=== PATIENT | female | born 1975 | race Caucasian/White ===

== ENCOUNTER 2023-12-21 13:40 | Emergency (ER) | payer OTHER, SELFPAY ==
[2023-12-21] VITALS (37 sets, daily range): BP systolic 97–145; BP diastolic 56–89; PULSE 105–130; RESP 16–20; TEMP 36.6–37.6; O2SAT 96–100; BMI 25.8
[2023-12-21] MEDS: 0.9 % SODIUM CHLORIDE 1000 ml 1,000 ML IV (14:26)
[2023-12-21] MEDS: ONDANSETRON 2 MG/ML inj 4 MG IVP ×2 (14:28→17:45)
--- NOTE | 2023-12-21 14:29 | ED.NAVMDI ---
HPI - Nausea/Vomiting/Diarrhea General Time Seen by Provider: 14:00 <Maris Reno MD - Last Filed: 12/21/23 17:24> Date Seen: 12/21/23 <Maris Reno MD - Last Filed: 12/21/23 17:24> Chief complaint: Nausea/Vomiting <Maris Reno MD - Last Filed: 12/21/23 17:24> Stated complaint: heart palpitations, vomiting <Maris Reno MD - Last Filed: 12/21/23 17:24> Time Seen by Provider: 12/21/23 13:59 <Maris Reno MD - Last Filed: 12/21/23 17:24> Source: patient, family and RN notes reviewed <Maris Reno MD - Last Filed: 12/21/23 17:24> Mode of arrival: ambulatory <Maris Reno MD - Last Filed: 12/21/23 17:24> Limitations: no limitations <Maris Reno MD - Last Filed: 12/21/23 17:24> History of Present Illness HPI Narrative: Marcy is a very pleasant 48-year-old female 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 Marcy had the onset of vomiting in association with diarrhea on evening December 17. This was associated with discomfort in the left lower quadrant. Initially she and her family attributed this to the pot luck that she had attended but no one else has been sick and her other family members are not ill. She notes that she had diarrhea up until 36 hours ago. Unfortunately vomiting has been continuing and she tried to have peanut butter toast earlier but ended up vomiting up approximately 20 minutes before she came to the hospital. Marcy has had chills and felt hot and cold but has not reported a fever. She denies dysuria hematuria. She did note some blood in her vomit that was within mucus and streaky. This was on Friday. She noted some blood and this stool and her stool seemed to be very dark. She denies recent heavy use of ibuprofen/Motrin. She does note that she has been drinking alcohol at night. She notes this has been because of stressors. She has no past history of withdrawal or history of pancreatitis. In the past 24 hours she is now getting very lightheaded when she stands up and her heart seems to be going fast. She also becomes very nauseated. No dysuria hematuria. She denies abdominal distension. No abdominal pain at this time. At home a COVID antigen test was negative. While working in the clinic no reported history of working with patient's with C diff. No recent extended travel, antibiotic use or working with children. <Maris Reno MD - Last Filed: 12/21/23 17:24> Associated nausea: Yes <Maris Reno MD - Last Filed: 12/21/23 17:24> Related Data Home medications: Home Medications ?Medication ?Instructions ?Recorded ?Confirmed aspirin 81 mg tablet,delayed 81 mg PO DAILY 12/21/23 08 release (Adult Aspirin Regimen) <Maris Reno MD - Last Filed: 12/21/23 17:24> Allergies/Adverse reactions: Allergies Allergy/AdvReac Type Severity Reaction Status Date / Time Penicillins Allergy Severe Difficulty Verified 12/21/23 15:23 Breathing <Maris Reno MD - Last Filed: 12/21/23 17:24> Review of Systems Status of ROS: Reports: 10 or more systems reviewed and unremarkable except as noted in History and below <Maris Reno MD - Last Filed: 12/21/23 17:24> Const: Reports: chills and fatigue; Denies: fever <Maris Reno MD - Last Filed: 12/21/23 17:24> Eyes: Denies: change in vision <Maris Reno MD - Last Filed: 12/21/23 17:24> ENMT: Denies: throat pain or nasal congestion <Maris Reno MD - Last Filed: 12/21/23 17:24> Cardio: Reports: lightheadedness; Denies: chest pain, swelling of feet/ankles or shortness of breath with exertion <Maris Reno MD - Last Filed: 12/21/23 17:24> Resp: Denies: shortness of breath or cough <Maris Reno MD - Last Filed: 12/21/23 17:24> GI: Reports: abdominal pain (Left lower quadrant now resolved), nausea, vomiting, diarrhea (No diarrhea in the last 36 hours) and blood in stool; Denies: constipation <Maris Reno MD - Last Filed: 12/21/23 17:24> : Denies: painful urination <Maris Reno MD - Last Filed: 12/21/23 17:24> Musculo: Denies: back pain <Maris Reno MD - Last Filed: 12/21/23 17:24> Endo: Reports: fatigue <Maris Reno MD - Last Filed: 12/21/23 17:24> PFSH PFS Social History: Social History Smoking Status: Current every day smoker What tobacco products do you use: cigarettes Do you use any of these nicotine containing products: None Second hand tobacco smoke exposure: Yes How often do you have a drink containing alcohol: 4 or more times a week How many standard drinks containing alcohol do you have on a typical day: 3 or 4 AUDIT-C Alcohol total score: 5 Non-prescribed substance use: denies use service: No <Maris Reno MD - Last Filed: 12/21/23 17:24> Exam Narrative: Exam Narrative: Marcy is alert and oriented. She appears fatigued but nontoxic. Mentating normally. EOM is full. Her lips are dry. Heart with a tachycardic rate but normal rhythm. Lungs are clear bilaterally abdomen is soft nontender. Nondistended. Lower extremities without edema. <Maris Reno MD - Last Filed: 12/21/23 17:24> Const: Vital Signs, click to edit/add: Vital Signs - 24 hr 12/21/23 13:53 12/21/23 13:53 12/21/23 15:36 Temperature 99.6 F 99.6 F Pulse Rate 119 H Pulse Rate [Pulse Oximeter] 130 H 130 H Respiratory Rate 20 20 Blood Pressure Blood Pressure [Ri ght Upper Arm] 133/73 133/73 Pulse Oximetry 100 100 100 Oxygen Delivery Me thod Room Air Room Air 12/21/23 15:45 12/21/23 15:50 12/21/23 15:53 Temperature 98 F Pulse Rate 120 H 112 H 110 H Pulse Rate [Pulse Oximeter] Respiratory Rate 18 Blood Pressure 110/65 110/65 Blood Pressure [Ri ght Upper Arm] Pulse Oximetry 100 100 Oxygen Delivery Me thod 12/21/23 16:00 12/21/23 16:01 12/21/23 16:10 Temperature 98.7 F Pulse Rate 113 H 113 H 116 H Pulse Rate [Pulse Oximeter] Respiratory Rate 18 Blood Pressure 117/64 126/68 Blood Pressure [Ri ght Upper Arm] Pulse Oximetry 100 99 100 Oxygen Delivery Me thod 12/21/23 16:12 12/21/23 16:15 12/21/23 16:16 Temperature Pulse Rate 120 H 121 H 116 H Pulse Rate [Pulse Oximeter] Respiratory Rate Blood Pressure 126/68 115/60 Blood Pressure [Ri ght Upper Arm] Pulse Oximetry 97 100 100 Oxygen Delivery Me thod 12/21/23 16:30 12/21/23 16:31 12/21/23 16:32 Temperature Pulse Rate 112 H 114 H 114 H Pulse Rate [Pulse Oximeter] Respiratory Rate Blood Pressure 118/72 Blood Pressure [Ri ght Upper Arm] Pulse Oximetry 100 100 97 Oxygen Delivery Me thod 12/21/23 16:45 12/21/23 16:46 12/21/23 16:55 Temperature 98.5 F Pulse Rate 111 H 111 H 115 H Pulse Rate [Pulse Oximeter] Respiratory Rate 16 Blood Pressure 119/65 109/62 Blood Pressure [Ri ght Upper Arm] Pulse Oximetry 98 99 99 Oxygen Delivery Me thod 12/21/23 17:21 12/21/23 17:49 12/21/23 17:54 Temperature 98.7 F 98.5 F 98.5 F Pulse Rate 111 H 110 H 111 H Pulse Rate [Pulse Oximeter] Respiratory Rate 16 18 16 Blood Pressure 106/56 L 118/65 118/65 Blood Pressure [Ri ght Upper Arm] Pulse Oximetry 98 99 99 Oxygen Delivery Me thod <Maris Reno MD - Last Filed: 12/21/23 17:24> Vital Signs, click to edit/add: Vital Signs - 24 hr 12/21/23 13:53 12/21/23 13:53 12/21/23 15:36 Temperature 99.6 F 99.6 F Pulse Rate 119 H Pulse Rate [Pulse Oximeter] 130 H 130 H Respiratory Rate 20 20 Blood Pressure Blood Pressure [Ri ght Upper Arm] 133/73 133/73 Pulse Oximetry 100 100 100 Oxygen Delivery Me thod Room Air Room Air 12/21/23 15:45 12/21/23 15:50 12/21/23 15:53 Temperature 98 F Pulse Rate 120 H 112 H 110 H Pulse Rate [Pulse Oximeter] Respiratory Rate 18 Blood Pressure 110/65 110/65 Blood Pressure [Ri ght Upper Arm] Pulse Oximetry 100 100 Oxygen Delivery Me thod 12/21/23 16:00 12/21/23 16:01 12/21/23 16:10 Temperature 98.7 F Pulse Rate 113 H 113 H 116 H Pulse Rate [Pulse Oximeter] Respiratory Rate 18 Blood Pressure 117/64 126/68 Blood Pressure [Ri ght Upper Arm] Pulse Oximetry 100 99 100 Oxygen Delivery Me thod 12/21/23 16:12 12/21/23 16:15 12/21/23 16:16 Temperature Pulse Rate 120 H 121 H 116 H Pulse Rate [Pulse Oximeter] Respiratory Rate Blood Pressure 126/68 115/60 Blood Pressure [Ri ght Upper Arm] Pulse Oximetry 97 100 100 Oxygen Delivery Me thod 12/21/23 16:30 12/21/23 16:31 12/21/23 16:32 Temperature Pulse Rate 112 H 114 H 114 H Pulse Rate [Pulse Oximeter] Respiratory Rate Blood Pressure 118/72 Blood Pressure [Ri ght Upper Arm] Pulse Oximetry 100 100 97 Oxygen Delivery Me thod 12/21/23 16:45 12/21/23 16:46 12/21/23 16:55 Temperature 98.5 F Pulse Rate 111 H 111 H 115 H Pulse Rate [Pulse Oximeter] Respiratory Rate 16 Blood Pressure 119/65 109/62 Blood Pressure [Ri ght Upper Arm] Pulse Oximetry 98 99 99 Oxygen Delivery Me thod 12/21/23 17:21 12/21/23 17:49 12/21/23 17:54 Temperature 98.7 F 98.5 F 98.5 F Pulse Rate 111 H 110 H 111 H Pulse Rate [Pulse Oximeter] Respiratory Rate 16 18 16 Blood Pressure 106/56 L 118/65 118/65 Blood Pressure [Ri ght Upper Arm] Pulse Oximetry 98 99 99 Oxygen Delivery Me thod <Dena Mcadams MD - Last Filed: 12/21/23 18:05> Documenting provider has reviewed patient's vital signs: yes <Maris Reno MD - Last Filed: 12/21/23 17:24> Course Course ED Course: Differential diagnosis includes but is not limited to viral gastroenteritis, colitis, autoimmune, food-borne illness, diverticulitis. Currently she is obviously dealing with dehydration with lightheadedness upon standing and tachycardia. Will give her 2 L normal saline, Zofran 4 mg. Will try to obtain stool studies if she is able to go to the bathroom. I did not attempt rectal exam as she has not felt the need to stool and 36 hours. She has had very poor p.o. intake. Will also check CBC, comprehensive panel, CRP as well as urinalysis. <Maris Reno MD - Last Filed: 12/21/23 17:24> Reevaluation(s) Reevaluation #1: Patient's hemoglobin came back at 4.5 but nursing staff states they noticed a clot in the 2. We are repeating that right now. Patient is very symptomatic when standing and is very dizzy. I have stopped the fluids as I did not want to further dilute her hemoglobin if it is indeed this low. Have added a type and screen and will plan on 2 units if repeat hemoglobin supports the 1st hemoglobin. I have also ordered an abdominal and pelvic CT with contrast. In speaking with patient she does think her blood type is O-positive. She notes that the blood in the vomit was streaky and not significant. However, she does note dark stools since December 17. She has not had a history of a GI bleed in the past. Creatinine is within normal limits. Lipase normal. LFTs are elevated. Given self report of daily alcohol use I have added an alcohol level to the labs. Patient is COVID negative. <Maris Reno MD - Last Filed: 12/21/23 17:24> Reevaluation #2: Repeat hemoglobin is 4.3. Given this and the fact that she is quite symptomatic I have elected to give her 1 unit of O-negative while we are waiting a type and cross. She does understand the risks of this. I was told that the typing cross would take 40 minutes and min my experience this as often been 1 hour. If she has any antibodies she will have delayed administration of blood and given her persistent tachycardia at rest, significant nausea and lightheadedness unless she is lying flat, I do feel we should proceed with a unit of O-negative. She is in agreement. Have discussed with her risks benefits. Will also give Protonix 80 mg IV. Octreotide bolus followed by infusion as well as Rocephin 1 g added after I spoke to the [place] hearing aid consultant. Marcy has been accepted in transfer but there is an 8 hour wait. Patient is feeling improved after 1st unit of blood. At 1 point she did have shortness of breath with a normal lung exam. Symptoms improved when we slowed the blood down and she was given Ativan 0.5 mg IV. Heart rate has decreased to around 110. Blood pressure remains stable. I did speak to Marcy about her CT results which do include a mild pancreatitis as well as some mild ascites hepatomegaly and signs of cirrhotic liver. Because of the 8 hour wait at [place] Marcy is open to exploring other possible Hospital transfers. Will speak with [facility] <Maris Reno MD - Last Filed: 12/21/23 17:24> Reevaluation #3: [facility] has accepted this patient in transfer. <Maris Reno MD - Last Filed: 12/21/23 17:24> [facility] has accepted this patient in transfer. Nursing staff reported to me that patient had a bloody emesis, blood and clots noted. This was about a 300 mL volume. Subsequent 4 mg IV Zofran was given. She is already received 80 mg IV Protonix, is on octreotide. Will give 1000 mg IV TXA. Did upgrade the ambulance transfer to emergent. Patient is feeling better, is not feeling any active nausea or abdominal pain at this time. When she did throw up she was having some abdominal pain but this has abated. Will watch closely. Do not feel that intubation and NG tube placement need to happen emergently at this time. Would like to get her to [facility] quickly so that she can receive GI services. We do not know that this is esophageal variceal bleeding, this could be gastrointestinal bleeding with ulcer disease. Certainly is an upper GI bleed regardless. <Dena Mcadams MD - Last Filed: 12/21/23 18:05> Vital Signs Vital signs: Initial Vital Signs Temperature 99.6 F 12/21/23 13:53 Temperature Source Temporal Artery Scan 12/21/23 13:53 Pulse Rate 130 H 12/21/23 13:53 Pulse Rhythm Regular 12/21/23 13:53 Pulse Strength 3+ Normal 12/21/23 13:53 Respiratory Rate 20 12/21/23 13:53 Blood Pressure 133/73 12/21/23 13:53 Blood Pressure Mean 93 12/21/23 13:53 Blood Pressure Position Sitting 12/21/23 13:53 Pulse Oximetry 100 12/21/23 13:53 Oxygen Delivery Method Room Air 12/21/23 13:53 Vital Signs Temperature 99.6 F 12/21/23 13:53 Pulse Rate 130 H 12/21/23 13:53 Respiratory Rate 20 12/21/23 13:53 Blood Pressure 133/73 12/21/23 13:53 Pulse Oximetry 100 12/21/23 13:53 Oxygen Delivery Method Room Air 12/21/23 13:53 Temperature 98.5 F 12/21/23 17:54 Pulse Rate 111 H 12/21/23 17:54 Respiratory Rate 16 12/21/23 17:54 Blood Pressure 118/65 12/21/23 17:54 Pulse Oximetry 99 12/21/23 17:54 Oxygen Delivery Method Room Air 12/21/23 13:53 <Maris Reno MD - Last Filed: 12/21/23 17:24> Initial Vital Signs Temperature 99.6 F 12/21/23 13:53 Temperature Source Temporal Artery Scan 12/21/23 13:53 Pulse Rate 130 H 12/21/23 13:53 Pulse Rhythm Regular 12/21/23 13:53 Pulse Strength 3+ Normal 12/21/23 13:53 Respiratory Rate 12/21/23 13:53 Blood Pressure 133/73 12/21/23 13:53 Blood Pressure Mean 93 12/21/23 13:53 Blood Pressure Position Sitting 12/21/23 13:53 Pulse Oximetry 100 12/21/23 13:53 Oxygen Delivery Method Room Air 12/21/23 13:53 Vital Signs Temperature 99.6 F 12/21/23 13:53 Pulse Rate 130 H 12/21/23 13:53 Respiratory Rate 20 12/21/23 13:53 Blood Pressure 133/73 12/21/23 13:53 Pulse Oximetry 100 12/21/23 13:53 Oxygen Delivery Method Room Air 12/21/23 13:53 Temperature 98.5 F 12/21/23 17:54 Pulse Rate 111 H 12/21/23 17:54 Respiratory Rate 16 12/21/23 17:54 Blood Pressure 118/65 12/21/23 17:54 Pulse Oximetry 99 12/21/23 17:54 Oxygen Delivery Method Room Air 12/21/23 13:53 <Dena Mcadams MD - Last Filed: 12/21/23 18:05> Medications Administered Medications: Generic Name Dose Route Start Last Admin Trade Name Freq PRN Reason Stop Dose Admin Octreotide Acetate 500 mcg/ 102.5 mls @ 10 mls/hr 12/21/23 17:05 12/21/23 17:56 Sodium Chloride IV 12/22/23 03:19 10 mls/hr ONCE ONE Administration Sodium Chloride 250 ml 12/21/23 15:25 12/21/23 15:55 0.9 % Sodium Chloride 250 Ml IV 12/22/23 23:59 250 ml ONCE PRN Administration Discontinued Medications Generic Name Dose Route Start Last Admin Trade Name Freq PRN Reason Stop Dose Admin Sodium Chloride 1,000 mls @ 1,000 mls/hr 12/21/23 14:18 12/21/23 15:17 0.9 % Sodium Chloride 1000 Ml IV 12/21/23 15:17 0 mls/hr .Q1H RADHA Infusion Ceftriaxone Sodium 1 gm/ 100 mls @ 200 mls/hr 12/21/23 17:05 12/21/23 17:56 Sodium Chloride IVPB 12/21/23 17:06 Infused ONCE ONE Infusion Octreotide Acetate 50 mcg 12/21/23 17:02 12/21/23 17:35 Octreotide Acetate 100 Mcg/Ml Inj IV 12/21/23 17:03 50 mcg ONCE ONE Administration Ondansetron HCl 4 mg 12/21/23 14:14 12/21/23 14:28 Ondansetron 2 Mg/Ml Inj IVP 12/21/23 14:15 4 mg ONCE ONE Administration Ondansetron HCl 4 mg 12/21/23 17:43 12/21/23 17:45 Ondansetron 2 Mg/Ml Inj IVP 12/21/23 17:44 4 mg ONCE ONE Administration Pantoprazole Sodium 80 mg 12/21/23 15:39 12/21/23 16:07 Pantoprazole Sodium 40 Mg Inj IVP 12/21/23 15:40 80 mg ONCE ONE Administration <Maris Reno MD - Last Filed: 12/21/23 17:24> Generic Name Dose Route Start Last Admin Trade Name Freq PRN Reason Stop Dose Admin Octreotide Acetate 500 mcg/ 102.5 mls @ 10 mls/hr 12/21/23 17:05 12/21/23 17:56 Sodium Chloride IV 12/22/23 03:19 10 mls/hr ONCE ONE Administration Sodium Chloride 250 ml 12/21/23 15:25 12/21/23 15:55 0.9 % Sodium Chloride 250 Ml IV 12/22/23 23:59 250 ml ONCE PRN Administration Discontinued Medications Generic Name Dose Route Start Last Admin Trade Name Freq PRN Reason Stop Dose Admin Sodium Chloride 1,000 mls @ 1,000 mls/hr 12/21/23 14:18 12/21/23 15:17 0.9 % Sodium Chloride 1000 Ml IV 12/21/23 15:17 0 mls/hr .Q1H RADHA Infusion Ceftriaxone Sodium 1 gm/ 100 mls @ 200 mls/hr 12/21/23 17:05 12/21/23 17:56 Sodium Chloride IVPB 12/21/23 17:06 Infused ONCE ONE Infusion Octreotide Acetate 50 mcg 12/21/23 17:02 12/21/23 17:35 Octreotide Acetate 100 Mcg/Ml Inj IV 12/21/23 17:03 50 mcg ONCE ONE Administration Ondansetron HCl 4 mg 12/21/23 14:14 12/21/23 14:28 Ondansetron 2 Mg/Ml Inj IVP 12/21/23 14:15 4 mg ONCE ONE Administration Ondansetron HCl 4 mg 12/21/23 17:43 12/21/23 17:45 Ondansetron 2 Mg/Ml Inj IVP 12/21/23 17:44 4 mg ONCE ONE Administration Pantoprazole Sodium 80 mg 12/21/23 15:39 12/21/23 16:07 Pantoprazole Sodium 40 Mg Inj IVP 12/21/23 15:40 80 mg ONCE ONE Administration <Dena Mcadams MD - Last Filed: 12/21/23 18:05> MDM - Nausea/Vomiting/Diarrhea MDM Narrative Medical decision making narrative: 48-year-old female with daily alcohol use, tobacco use, daily aspirin use transfer to [facility] for GI consult and ICU. Patient has received Ativan 0.5 mg, Rocephin 1 g IV, octreotide 50 mcg bolus followed by 50 microgram/hour infusion, Protonix 80 mg IV. 1. Nausea/vomiting/diarrhea-diarrhea has now resolved. The patient did receive Zofran and initiated a L of fluids but discontinued when hemoglobin returned at 4.5. No vomiting noted in the ED but patient continues to be nauseated. No recent travel, antibiotic use, known exposures. COVID is negative. 2. GI bleed-patient noted to have a hemoglobin of 4.5. We were worried about lab error and thus we recheck tonight was 4.3. Given the fact that she was tachycardic and significantly symptomatic while even sitting up I elected to give her a unit of O neg. Second unit will be type specific. No history of transfusions in the past. We do discuss risk and benefits and patient has agreed to transfusion. EKG shows some nonspecific ST and T-wave changes but troponin is negative. CT of the abdomen shows mild pancreatitis an evidence of a cirrhotic liver with mild ascites as well as varicosities in the abdomen. Patient is given Rocephin 1 g IV, octreotide bolus and infusion as well as Protonix 80 mg IV. 3. Daily alcohol use-no history of withdrawal symptoms. Patient states she has been using alcohol evenings. LFTs are somewhat elevated with an AST of 118, ALT of 36 and alk-phos of 194. Bilirubin is normal. Alcohol level 0. No evidence of withdrawal here in the emergency room. 4. History of tobacco use-has not had a cigarette since onset of symptoms on December 17. 5. Disposition-patient will be transferred via ground ALS to [facility] for admission, specialty consultation. Accepting physician is Dr. Long Villarreal. Dictation done with voice recognition, and as a result, wrong word or [id number] substitutions may have occurred.? There may be errors in the script that have gone undetected.? Please consider this when interpreting information found in this chart. <Maris Reno MD - Last Filed: 12/21/23 17:24> Medical Records Attestation: I reviewed the patient's medical records. <Maris Reno MD - Last Filed: 12/21/23 17:24> Lab Data Attestation: I reviewed the patient's lab results. <Maris Reno MD - Last Filed: 12/21/23 17:24> Labs: Lab Results 12/21/23 12/21/23 12/21/23 Range/Units 13:53 13:53 13:53 WBC (4.50-11.00) K/uL RBC (4.00-5.20) m/uL Hgb (12.0-16.0) gm/dL Hct (33.0-51.0) % MCV (80-100) fL MCH (26-34) pg MCHC (32-36) gm/dL RDW Coeff of Sarah (11.5-15.5) % Plt Count (140-440) K/uL Neut % (Auto) (42.0-72.0) % Lymph % (Auto) (20-44) % Sunflower % (Auto) (0.0-11.0) % Eos % (Auto) (0.0-7.0) % Baso % (Auto) (0.0-3.0) % Neut # (Auto) (1.7-7.0) K/uL Lymph # (Auto) (0.90-2.90) K/uL Sunflower # (Auto) (0.00-0.90) K/UL Eos # (Auto) (0.00-0.50) K/uL Baso # (Auto) (0.00-0.30) K/uL Abs Immat Gran (auto) (0.00-0.30) K/uL Imm/Tot Granulo (auto) % Diff Slide Review (Acceptable) Sodium (135-149) mmol/L Potassium (3.6-5.1) mmol/L Chloride (96-114) mmol/L Carbon Dioxide (20-32) mmol/L Anion Gap (7-15) mEq/L BUN (5-24) mg/dL Creatinine (0.5-1.5) mg/dL Estimated Creat Clear Estimated GFR ml/min Glucose (60-115) mg/dL Calcium (8.4-10.6) mg/dL Total Bilirubin (0.1-1.5) mg/dL AST (12-35) U/L ALT (4-35) U/L Alkaline Phosphatase (40-150) U/L Troponin I (0.01-0.04) ng/mL C-Reactive Protein (0.5-1.0) mg/dL Total Protein (6.0-8.3) g/dL Albumin (3.3-5.0) g/dL Lipase (23-300) U/L Ethyl Alcohol (0.01-0.03) % SARS-CoV-2 (PCR) Negative SARS-CoV-2 Negative SARS-CoV-2 (Negative) Influenza Type A (PCR) Negative PCR FLU A Negative PCR FLU A (Negative) Influenza Type B (PCR) Negative PCR FLU B (Negative) RSV (PCR) (Negative) Lab Acknowledgement Blood Type Antibody Screen Crossmatch (AHG) 12/21/23 12/21/23 12/21/23 Range/Units 13:53 13:53 14:24 WBC 13.84 H (4.50-11.00) K/uL RBC 1.84 L (4.00-5.20) m/uL Hgb 4.5 L* (12.0-16.0) gm/dL Hct 14.5 L (33.0-51.0) % MCV 79 L (80-100) fL MCH 25 L (26-34) pg MCHC 31 L (32-36) gm/dL RDW Coeff of Sarah 20.4 H (11.5-15.5) % Plt Count 135 L (140-440) K/uL Neut % (Auto) 74.7 H (42.0-72.0) % Lymph % (Auto) 12.7 L (20-44) % Sunflower % (Auto) 10.1 (0.0-11.0) % Eos % (Auto) 1.2 (0.0-7.0) % Baso % (Auto) 0.4 (0.0-3.0) % Neut # (Auto) 10.30 H (1.7-7.0) K/uL Lymph # (Auto) 1.80 (0.90-2.90) K/uL Sunflower # (Auto) 1.40 H (0.00-0.90) K/UL Eos # (Auto) 0.20 (0.00-0.50) K/uL Baso # (Auto) 0.10 (0.00-0.30) K/uL Abs Immat Gran (auto) 0.10 (0.00-0.30) K/uL Imm/Tot Granulo (auto) 0.9 % Diff Slide Review Acceptable Review (Acceptable) Sodium 133 L (135-149) mmol/L Potassium 3.3 L (3.6-5.1) mmol/L Chloride 99 (96-114) mmol/L Carbon Dioxide 25 (20-32) mmol/L Anion Gap 9 (7-15) mEq/L BUN 22 (5-24) mg/dL Creatinine 0.7 (0.5-1.5) mg/dL Estimated Creat Clear 97.66 Estimated GFR 108 ml/min Glucose 122 H (60-115) mg/dL Calcium 8.8 (8.4-10.6) mg/dL Total Bilirubin 1.4 (0.1-1.5) mg/dL AST 118 H (12-35) U/L ALT 36 H (4-35) U/L Alkaline Phosphatase 194 H (40-150) U/L Troponin I 0.01 (0.01-0.04) ng/mL C-Reactive Protein 2.6 H (0.5-1.0) mg/dL Total Protein 6.9 (6.0-8.3) g/dL Albumin 3.6 (3.3-5.0) g/dL Lipase 168 (23-300) U/L Ethyl Alcohol < 0.01 L (0.01-0.03) % SARS-CoV-2 (PCR) (Negative) Influenza Type A (PCR) (Negative) Influenza Type B (PCR) Negative PCR FLU B (Negative) RSV (PCR) Negative PCR RSV Negative PCR RSV (Negative) Lab Acknowledgement Blood Type Antibody Screen Crossmatch (AHG) 12/21/23 12/21/23 12/21/23 Range/Units 14:39 15:16 15:24 WBC 13.66 H (4.50-11.00) K/uL RBC 1.73 L (4.00-5.20) m/uL Hgb 4.3 L* (12.0-16.0) gm/dL Hct 13.7 L (33.0-51.0) % MCV 79 L (80-100) fL MCH 25 L (26-34) pg MCHC 31 L (32-36) gm/dL RDW Coeff of Sarah 20.4 H (11.5-15.5) % Plt Count 131 L (140-440) K/uL Neut % (Auto) 75.0 H (42.0-72.0) % Lymph % (Auto) 13.1 L (20-44) % Sunflower % (Auto) 10.0 (0.0-11.0) % Eos % (Auto) 0.9 (0.0-7.0) % Baso % (Auto) 0.3 (0.0-3.0) % Neut # (Auto) 10.20 H (1.7-7.0) K/uL Lymph # (Auto) 1.80 (0.90-2.90) K/uL Sunflower # (Auto) 1.40 H (0.00-0.90) K/UL Eos # (Auto) 0.10 (0.00-0.50) K/uL Baso # (Auto) 0.00 (0.00-0.30) K/uL Abs Immat Gran (auto) 0.10 (0.00-0.30) K/uL Imm/Tot Granulo (auto) 0.7 % Diff Slide Review Acceptable Review (Acceptable) Sodium (135-149) mmol/L Potassium (3.6-5.1) mmol/L Chloride (96-114) mmol/L Carbon Dioxide (20-32) mmol/L Anion Gap (7-15) mEq/L BUN (5-24) mg/dL Creatinine (0.5-1.5) mg/dL Estimated Creat Clear Estimated GFR ml/min Glucose (60-115) mg/dL Calcium (8.4-10.6) mg/dL Total Bilirubin (0.1-1.5) mg/dL AST (12-35) U/L ALT (4-35) U/L Alkaline Phosphatase (40-150) U/L Troponin I (0.01-0.04) ng/mL C-Reactive Protein (0.5-1.0) mg/dL Total Protein (6.0-8.3) g/dL Albumin (3.3-5.0) g/dL Lipase (23-300) U/L Ethyl Alcohol (0.01-0.03) % SARS-CoV-2 (PCR) (Negative) Influenza Type A (PCR) (Negative) Influenza Type B (PCR) (Negative) RSV (PCR) (Negative) Lab Acknowledgement Test Added Test Added Blood Type O Positive Antibody Screen NEGATIVE Crossmatch (AHG) See Detail <Maris Reno MD - Last Filed: 12/21/23 17:24> Lab Results 12/21/23 12/21/23 12/21/23 Range/Units 13:53 13:53 13:53 WBC (4.50-11.00) K/uL RBC (4.00-5.20) m/uL Hgb (12.0-16.0) gm/dL Hct (33.0-51.0) % MCV (80-100) fL MCH (26-34) pg MCHC (32-36) gm/dL RDW Coeff of Sarah (11.5-15.5) % Plt Count (140-440) K/uL Neut % (Auto) (42.0-72.0) % Lymph % (Auto) (20-44) % Sunflower % (Auto) (0.0-11.0) % Eos % (Auto) (0.0-7.0) % Baso % (Auto) (0.0-3.0) % Neut # (Auto) (1.7-7.0) K/uL Lymph # (Auto) (0.90-2.90) K/uL Sunflower # (Auto) (0.00-0.90) K/UL Eos # (Auto) (0.00-0.50) K/uL Baso # (Auto) (0.00-0.30) K/uL Abs Immat Gran (auto) (0.00-0.30) K/uL Imm/Tot Granulo (auto) % Diff Slide Review (Acceptable) Sodium (135-149) mmol/L Potassium (3.6-5.1) mmol/L Chloride (96-114) mmol/L Carbon Dioxide (20-32) mmol/L Anion Gap (7-15) mEq/L BUN (5-24) mg/dL Creatinine (0.5-1.5) mg/dL Estimated Creat Clear Estimated GFR ml/min Glucose (60-115) mg/dL Calcium (8.4-10.6) mg/dL Total Bilirubin (0.1-1.5) mg/dL AST (12-35) U/L ALT (4-35) U/L Alkaline Phosphatase (40-150) U/L Troponin I (0.01-0.04) ng/mL C-Reactive Protein (0.5-1.0) mg/dL Total Protein (6.0-8.3) g/dL Albumin (3.3-5.0) g/dL Lipase (23-300) U/L Ethyl Alcohol (0.01-0.03) % SARS-CoV-2 (PCR) Negative SARS-CoV-2 Negative SARS-CoV-2 (Negative) Influenza Type A (PCR) Negative PCR FLU A Negative PCR FLU A (Negative) Influenza Type B (PCR) Negative PCR FLU B (Negative) RSV (PCR) (Negative) Lab Acknowledgement Blood Type Antibody Screen Crossmatch (AHG) 12/21/23 12/21/23 12/21/23 Range/Units 13:53 13:53 14:24 WBC 13.84 H (4.50-11.00) K/uL RBC 1.84 L (4.00-5.20) m/uL Hgb 4.5 L* (12.0-16.0) gm/dL Hct 14.5 L (33.0-51.0) % MCV 79 L (80-100) fL MCH 25 L (26-34) pg MCHC 31 L (32-36) gm/dL RDW Coeff of Sarah 20.4 H (11.5-15.5) % Plt Count 135 L (140-440) K/uL Neut % (Auto) 74.7 H (42.0-72.0) % Lymph % (Auto) 12.7 L (20-44) % Sunflower % (Auto) 10.1 (0.0-11.0) % Eos % (Auto) 1.2 (0.0-7.0) % Baso % (Auto) 0.4 (0.0-3.0) % Neut # (Auto) 10.30 H (1.7-7.0) K/uL Lymph # (Auto) 1.80 (0.90-2.90) K/uL Sunflower # (Auto) 1.40 H (0.00-0.90) K/UL Eos # (Auto) 0.20 (0.00-0.50) K/uL Baso # (Auto) 0.10 (0.00-0.30) K/uL Abs Immat Gran (auto) 0.10 (0.00-0.30) K/uL Imm/Tot Granulo (auto) 0.9 % Diff Slide Review Acceptable Review (Acceptable) Sodium 133 L (135-149) mmol/L Potassium 3.3 L (3.6-5.1) mmol/L Chloride 99 (96-114) mmol/L Carbon Dioxide 25 (20-32) mmol/L Anion Gap 9 (7-15) mEq/L BUN 22 (5-24) mg/dL Creatinine 0.7 (0.5-1.5) mg/dL Estimated Creat Clear 97.66 Estimated GFR 108 ml/min Glucose 122 H (60-115) mg/dL Calcium 8.8 (8.4-10.6) mg/dL Total Bilirubin 1.4 (0.1-1.5) mg/dL AST 118 H (12-35) U/L ALT 36 H (4-35) U/L Alkaline Phosphatase 194 H (40-150) U/L Troponin I 0.01 (0.01-0.04) ng/mL C-Reactive Protein 2.6 H (0.5-1.0) mg/dL Total Protein 6.9 (6.0-8.3) g/dL Albumin 3.6 (3.3-5.0) g/dL Lipase 168 (23-300) U/L Ethyl Alcohol < 0.01 L (0.01-0.03) % SARS-CoV-2 (PCR) (Negative) Influenza Type A (PCR) (Negative) Influenza Type B (PCR) Negative PCR FLU B (Negative) RSV (PCR) Negative PCR RSV Negative PCR RSV (Negative) Lab Acknowledgement Blood Type Antibody Screen Crossmatch (AHG) 12/21/23 12/21/23 12/21/23 Range/Units 14:39 15:16 15:24 WBC 13.66 H (4.50-11.00) K/uL RBC 1.73 L (4.00-5.20) m/uL Hgb 4.3 L* (12.0-16.0) gm/dL Hct 13.7 L (33.0-51.0) % MCV 79 L (80-100) fL MCH 25 L (26-34) pg MCHC 31 L (32-36) gm/dL RDW Coeff of Sarah 20.4 H (11.5-15.5) % Plt Count 131 L (140-440) K/uL Neut % (Auto) 75.0 H (42.0-72.0) % Lymph % (Auto) 13.1 L (20-44) % Sunflower % (Auto) 10.0 (0.0-11.0) % Eos % (Auto) 0.9 (0.0-7.0) % Baso % (Auto) 0.3 (0.0-3.0) % Neut # (Auto) 10.20 H (1.7-7.0) K/uL Lymph # (Auto) 1.80 (0.90-2.90) K/uL Sunflower # (Auto) 1.40 H (0.00-0.90) K/UL Eos # (Auto) 0.10 (0.00-0.50) K/uL Baso # (Auto) 0.00 (0.00-0.30) K/uL Abs Immat Gran (auto) 0.10 (0.00-0.30) K/uL Imm/Tot Granulo (auto) 0.7 % Diff Slide Review Acceptable Review (Acceptable) Sodium (135-149) mmol/L Potassium (3.6-5.1) mmol/L Chloride (96-114) mmol/L Carbon Dioxide (20-32) mmol/L Anion Gap (7-15) mEq/L BUN (5-24) mg/dL Creatinine (0.5-1.5) mg/dL Estimated Creat Clear Estimated GFR ml/min Glucose (60-115) mg/dL Calcium (8.4-10.6) mg/dL Total Bilirubin (0.1-1.5) mg/dL AST (12-35) U/L ALT (4-35) U/L Alkaline Phosphatase (40-150) U/L Troponin I (0.01-0.04) ng/mL C-Reactive Protein (0.5-1.0) mg/dL Total Protein (6.0-8.3) g/dL Albumin (3.3-5.0) g/dL Lipase (23-300) U/L Ethyl Alcohol (0.01-0.03) % SARS-CoV-2 (PCR) (Negative) Influenza Type A (PCR) (Negative) Influenza Type B (PCR) (Negative) RSV (PCR) (Negative) Lab Acknowledgement Test Added Test Added Blood Type O Positive Antibody Screen NEGATIVE Crossmatch (AHG) See Detail <Dena Mcadams MD - Last Filed: 12/21/23 18:05> Imaging Data CT scan - abdomen: Attestation: I have reviewed the pertinent imaging results. <Maris Reno MD - Last Filed: 12/21/23 17:24> My impression: By my read I do see fluid around the liver. I see varicosities clearly in the abdomen. I do not see any evidence of diverticulitis. <Maris Reno MD - Last Filed: 12/21/23 17:24> Radiologist's impression: Calcified granuloma in the right lower lobe. There is minimal basilar atelectasis. The liver is enlarged with a somewhat macro cirrhotic liver contour. Mild perihepatic fluid. The portal vein is patent. There is mild thickening of the gallbladder wall and pericholecystic fluid. There is no significant common biliary ductal dilatation or abrupt cut off. The spleen is normal in enhancement and size. The stomach and duodenum are grossly unremarkable. There is mild questionable peripancreatic inflammatory change which may represent evolving pancreatitis with mild pancreatic edema. The adrenal glands are unremarkable. The kidneys demonstrate preserved corticomedullary differentiation without evidence of obstructive uropathy. There is moderate stool seen throughout the colon with distal colonic diverticulosis. The appendix is unremarkable. There is no significant mesenteric, retroperitoneal, or pelvic sidewall lymph nodes. The aorta is nonaneurysmal with scattered atherosclerotic calcification. Demonstration of large portal collateral seen within the right lower quadrant mesentery with moderate inflammatory change seen in the right pericolic gutter. The solid pelvic viscera are grossly unremarkable. There is minimal fluid tracking along the bilateral pericolic gutters and central pelvis. The anterior abdominal wall is intact without significant hernias. The lumbar vertebral body heights are grossly maintained with endplate Schmorl`s defects. There is no significant spondylolisthesis or displaced fracture. Impression: Moderate peripancreatic inflammatory change consistent with likely mild pancreatitis. Moderate hepatomegaly with macro cirrhotic liver contour likely representing hepatic cirrhosis with extensive dilated portal collaterals seen within the right lower quadrant. Minimal ascites seen within the right upper quadrant and central upper quadrant mesentery. No other acute intra-abdominal abnormalities are appreciated. <Maris Reno MD - Last Filed: 12/21/23 17:24> ECG Data Attestation: I personally reviewed and interpreted this ECG as follows: <Maris Reno MD - Last Filed: 12/21/23 17:24> ECG interpretation date: 12/21/23 <Maris Reno MD - Last Filed: 12/21/23 17:24> ECG interpretation time: 14:38 <Maris Reno MD - Last Filed: 12/21/23 17:24> Interpretation: EKG by my read shows sinus tachycardia at a rate of 121. Nonspecific ST-T abnormality with slight depression in 1 to but in otherwise no acute or worrisome findings. QT and [place] intervals within normal limits. <Maris Reno MD - Last Filed: 12/21/23 17:24> Discharge Plan Discharge Clinical Impression: Acute GI bleeding, Alcohol use, Cirrhosis <Maris Reno MD - Last Filed: 12/21/23 17:24> Discharge Location: [facility] <Maris Reno MD - Last Filed: 12/21/23 17:24> Condition: Critical <Maris Reno MD - Last Filed: 12/21/23 17:24> Prescriptions: No Action aspirin [Adult Aspirin Regimen] 81 mg tablet,delayed release (DR/EC) 81 mg PO DAILY <Maris Reno MD - Last Filed: 12/21/23 17:24> Follow Up/Referrals: Rachelle Kahn MD [Staff Physician] - Provider,Not a Local [Primary Care Provider] - <Maris Reno MD - Last Filed: 12/21/23 17:24> Stand Alone Forms: [employer] Info Instructions <Maris Reno MD - Last Filed: 12/21/23 17:24> Critical Care Time Critical Care Time Critical Care Time: Yes Attestation: The patient required my highest level preparedness to intervene emergently and I personally spent this critical care time directly and personally managing the patient. This critical care time included: Obtaining a history; Examining the patient; Pulse oximetry; Ordering and reviewing of studies; Arranging urgent treatment with development of a management plan; Evaluation of patients response to treatment; Frequent reassessment discussions with other providers. This critical care time was performed to assess and manage the high probability of imminent life-threatening deterioration that could result in multiorgan failure. It was exclusive of separate billable procedures and treating other patients and teaching time. <Maris Reno MD - Last Filed: 12/21/23 17:24> Total Critical Care Time in Minutes: 120 <Maris Reno MD - Last Filed: 12/21/23 17:24>
[2023-12-21 14:40] LABS: PCR FLU A Negative PCR FLU A (Negative); PCR FLU B Negative PCR FLU B (Negative); PCR RSV Negative PCR RSV (Negative); SARS PCR* Negative SARS-CoV-2 (Negative)
[2023-12-21 14:50] LABS: Albumin* 3.6 g/dL (3.3-5.0); Chloride* 99 mmol/L (96-114)
[2023-12-21 14:51] LABS: Potassium* 3.3 mmol/L (3.6-5.1); Sodium* 133 mmol/L (135-149)
[2023-12-21 14:53] LABS: Creatinine* 0.7 mg/dL (0.5-1.5); Est. Creatinine Clearance* 97.66; Estimated Glomerular Filt Rate 108 ml/min
[2023-12-21 14:54] LABS: Alanine Aminotransferase* 36 U/L (4-35); Alkaline Phosphatase* 194 U/L (40-150); Anion Gap 9 mEq/L (7-15); Aspartate Amino Transferase* 118 U/L (12-35); Bilirubin Total* 1.4 mg/dL (0.1-1.5); Blood Urea Nitrogen* 22 mg/dL (5-24); Calcium* 8.8 mg/dL (8.4-10.6); Carbon Dioxide* 25 mmol/L (20-32); Glucose* 122 mg/dL (60-115); Lipase* 168 U/L (23-300); Total Protein* 6.9 g/dL (6.0-8.3)
[2023-12-21 14:56] LABS: C Reactive Protein* 2.6 mg/dL (0.5-1.0)
[2023-12-21 15:00] LABS: Basophils Percent Auto 0.4 % (0.0-3.0); Eosinophils Percent Auto 1.2 % (0.0-7.0); Hematocrit 14.5 % (33.0-51.0); Immature Granulocytes Pct Auto 0.9 %; Lymphocytes Percent Auto 12.7 % (20-44); Mean Corpuscular HGB Conc 31 gm/dL (32-36); Mean Corpuscular Hemoglobin 25 pg (26-34); Mean Corpuscular Volume 79 fL (80-100); Monocytes Percent Auto 10.1 % (0.0-11.0); Neutrophils Percent Auto 74.7 % (42.0-72.0); Platelet Count* 135 K/uL (140-440); RDW Coefficient of Variation % 20.4 % (11.5-15.5); Red Blood Count 1.84 m/uL (4.00-5.20); White Blood Count* 13.84 K/uL (4.50-11.00)
[2023-12-21 15:04] LABS: Hemoglobin* 4.5 gm/dL (12.0-16.0); Slide Review Reflex Yes
[2023-12-21 15:05] LABS: Troponin I* 0.01 ng/mL (0.01-0.04)
--- NOTE | 2023-12-21 15:05 | CRLHL7_ITS ---
For Patients: As a result of the Century Cures Act, medical imaging exams and procedure reports are released immediately into your electronic medical record. You may view this report before your referring provider. If you have questions, please contact your health care provider. Indication: Low hemoglobin, dark stools Technique: Volumetric multidetector CT images of the abdomen and pelvis were obtained after the administration of intravenous contrast. 100 cc Isovue 370 low osmolar intravenous contrast Comparison: None available. Findings: Calcified granuloma in the right lower lobe. There is minimal basilar atelectasis. The liver is enlarged with a somewhat macro cirrhotic liver contour. Mild perihepatic fluid. The portal vein is patent. There is mild thickening of the gallbladder wall and pericholecystic fluid. There is no significant common biliary ductal dilatation or abrupt cut off. The spleen is normal in enhancement and size. The stomach and duodenum are grossly unremarkable. There is mild questionable peripancreatic inflammatory change which may represent evolving pancreatitis with mild pancreatic edema. The adrenal glands are unremarkable. The kidneys demonstrate preserved corticomedullary differentiation without evidence of obstructive uropathy. There is moderate stool seen throughout the colon with distal colonic diverticulosis. The appendix is unremarkable. There is no significant mesenteric, retroperitoneal, or pelvic sidewall lymph nodes. The aorta is nonaneurysmal with scattered atherosclerotic calcification. Demonstration of large portal collateral seen within the right lower quadrant mesentery with moderate inflammatory change seen in the right pericolic gutter. The solid pelvic viscera are grossly unremarkable. There is minimal fluid tracking along the bilateral pericolic gutters and central pelvis. The anterior abdominal wall is intact without significant hernias. The lumbar vertebral body heights are grossly maintained with endplate Schmorl`s defects. There is no significant spondylolisthesis or displaced fracture. Impression: Moderate peripancreatic inflammatory change consistent with likely mild pancreatitis. Moderate hepatomegaly with macro cirrhotic liver contour likely representing hepatic cirrhosis with extensive dilated portal collaterals seen within the right lower quadrant. Minimal ascites seen within the right upper quadrant and central upper quadrant mesentery. No other acute intra-abdominal abnormalities are appreciated. Please note that all CT scans at this facility use dose modulation, iterative reconstruction, and/or weight-based dosing when appropriate to reduce radiation dose to as low as reasonably achievable. Dictated by Drew Emerson MD @ 12/21/2023 4:18:15 PM (Electronically Signed)
[2023-12-21 15:42] LABS: Ethanol* < 0.01 % (0.01-0.03)
[2023-12-21] MEDS: 0.9 % SODIUM CHLORIDE 250 ml IV (15:55)
[2023-12-21] MEDS: PANTOPRAZOLE SODIUM 40 MG INJ 80 MG IVP (16:07)
[2023-12-21 16:26] LABS: Slide Review Acceptable Review (Acceptable)
[2023-12-21 16:40] LABS: Basophils Percent Auto 0.3 % (0.0-3.0); Eosinophils Percent Auto 0.9 % (0.0-7.0); Hematocrit 13.7 % (33.0-51.0); Immature Granulocytes Pct Auto 0.7 %; Lymphocytes Percent Auto 13.1 % (20-44); Mean Corpuscular HGB Conc 31 gm/dL (32-36); Mean Corpuscular Hemoglobin 25 pg (26-34); Mean Corpuscular Volume 79 fL (80-100); Platelet Count* 131 K/uL (140-440); RDW Coefficient of Variation % 20.4 % (11.5-15.5); Red Blood Count 1.73 m/uL (4.00-5.20); White Blood Count* 13.66 K/uL (4.50-11.00)
[2023-12-21 16:41] LABS: Hemoglobin* 4.3 gm/dL (12.0-16.0); Slide Review Reflex Yes
[2023-12-21 16:42] LABS: Slide Review Acceptable Review (Acceptable)
[2023-12-21] MEDS: cefTRIAXone 1 GM in 0.9 % SODIUM CHLORIDE Mini-bag 100 ML IVPB (17:20)
--- NOTE | 2023-12-21 17:51 | ED.NURSE ---
While getting ready to administer second unit of PRBCs patient had episode of malaika red blood with clots amounting to 300cc and pain with this vomiting. Zofran administered and MD to bedside. Priority for transfer upgraded from routine to Stat due to change in patient condition.
[2023-12-21] MEDS: TRANEXAMIC ACID 100 MG/ML INJ 1000 MG IV (18:12)
[2023-12-21 18:29] LABS: Prothrombin Time 17.1 Seconds
[2023-12-21 18:30] LABS: Partial Thromboplastin Time* 35 Seconds (23-33)
== END 2023-12-21 18:36 | disposition short-term general hospital (02) ==
PROVIDERS: Family Medicine; Emergency Provider Family Medicine
DX: K92.2 Gastrointestinal hemorrhage, unspecified (principal); K70.30 Alcoholic cirrhosis of liver without ascites
CPT/HCPCS: 36415; 36430; 74177; 80053; 81001; 82077; 82270; 83690; 84484; 85025; 85610; 85730; 86140; 86850; 86900; 86901; 86922; 87045; 87046; 87427; 87493; 87631; 87635; 96365; 96375; 99285; 99291; 99292; J0696; J2354; J2405; J2470; J7030; J7050; P9016; Q9967

== ENCOUNTER 2023-12-21 18:04 | Outpatient (CLI) | payer OTHER, SELFPAY | END 2023-12-21 18:05 | disposition home or self-care (01) | LOC: AMB 12-23 14:35 | PROVIDERS: Visit Provider Family Medicine | DX: K92.2 Gastrointestinal hemorrhage, unspecified (principal); K74.60 Unspecified cirrhosis of liver | CPT/HCPCS: A0425; A0427 ==

== ENCOUNTER 2024-01-09 12:10 | Outpatient (CLI) | payer OTHER, SELFPAY | END 2024-01-09 12:11 | disposition home or self-care (01) | PROVIDERS: Visit Provider Family Medicine | DX: D64.9 Anemia, unspecified (principal); F10.20 Alcohol dependence, uncomplicated; I85.00 Esophageal varices without bleeding; K74.60 Unspecified cirrhosis of liver | CPT/HCPCS: 80076; 82607; 82746; 83690 ==

== ENCOUNTER 2024-02-02 12:04 | Outpatient (CLI) | payer OTHER, SELFPAY | END 2024-02-02 12:05 | disposition home or self-care (01) | LOC: NFLDREF 02-07 15:35 | PROVIDERS: Visit Provider Family Medicine | DX: F10.20 Alcohol dependence, uncomplicated (principal); K74.60 Unspecified cirrhosis of liver | CPT/HCPCS: 80076 ==

== ENCOUNTER 2024-03-08 09:30 | Outpatient (CLI) | payer OTHER, SELFPAY ==
--- NOTE | 2024-03-08 11:16 | W.ANESCHARGE ---
Anesthesia Charges Start Date/Time Anesthesia Start Date: 03/08/24 Anesthesia Start Time: 10:43 Stop Date/Time Anesthesia Stop Date: 03/08/24 Anesthesia Stop Time: 11:27
--- NOTE | 2024-03-08 11:28 | W.ANESCHARGE ---
Anesthesia Charges Start Date/Time Anesthesia Start Date: 03/08/24 Anesthesia Start Time: 10:43 Stop Date/Time Anesthesia Stop Date: 03/08/24 Anesthesia Stop Time: 11:27
== END 2024-03-08 09:31 | disposition home or self-care (01) ==
LOC: OP CLINIC 09:31
PROVIDERS: PCP Family Medicine; Visit Provider Surgery
DX: Z12.11 Encounter for screening for malignant neoplasm of colon (principal); D12.3 Benign neoplasm of transverse colon; D12.8 Benign neoplasm of rectum; K64.4 Residual hemorrhoidal skin tags; K64.8 Other hemorrhoids
CPT/HCPCS: 00811; 45385; 88300; 88305; J2704

== ENCOUNTER 2024-04-12 12:05 | Outpatient (CLI) | payer OTHER, SELFPAY | END 2024-04-12 12:06 | disposition home or self-care (01) | LOC: NFLDREF 04-13 15:39 | PROVIDERS: PCP Family Medicine; Referring Provider Family Medicine; Visit Provider Family Medicine | DX: D64.9 Anemia, unspecified (principal) | CPT/HCPCS: 82728; 83540; 83550; 84443 ==

== ENCOUNTER 2024-04-30 10:41 | Outpatient (CLI) | payer OTHER, SELFPAY ==
--- NOTE | 2024-04-30 11:30 | CRLHL7_ITS ---
For Patients: As a result of the Century Cures Act, medical imaging exams and procedure reports are released immediately into your electronic medical record. You may view this report before your referring provider. If you have questions, please contact your health care provider. BILATERAL SCREENING MAMMOGRAM WITH COMPUTER-AIDED DETECTION AND TOMOSYNTHESIS TECHNIQUE: CC and MLO views were obtained. These mammographic images have been obtained using full-field digital technique. These mammographic images were interpreted with the benefit of computer-aided detection. Breast Tomosynthesis was used in this interpretation. COMPARISON FILM: Baseline. FINDINGS: The breasts are heterogeneously dense, which may obscure small masses. IMPRESSION: There is no radiographic evidence for malignancy. ASSESSMENT: BI-RADS Category 1: Negative RECOMMENDATION: Routine screening mammogram in 1 year. A lay language report of this examination will be provided to the patient. Rufino Agrawal M.D. Diagnostic Radiologist [email or web address] SP/Dictated by: Ruifno Agrawal MD @ 04/30/2024 1:12:00 PM (Electronically Signed)
== END 2024-04-30 10:42 | disposition home or self-care (01) ==
LOC: MAMMO 10:41
PROVIDERS: PCP Family Medicine; Visit Provider Obstetrics & Gynecology
DX: Z12.31 Encounter for screening mammogram for malignant neoplasm of breast (principal); R92.333 Mammographic heterogeneous density, bilateral breasts
CPT/HCPCS: 77063; 77067